=== PATIENT | female | born 1980 | race Caucasian/White ===

== ENCOUNTER 2022-08-11 16:12 | Emergency (ER) | payer BC ==
[~2022-08-11] VITALS: Ht 157.5 cm; Wt 74.8 kg
[2022-08-11] MEDS ORDERED: DiphenhydrAMINE HCL 50 MG/ML VIAL IV ONE (16:30)
[2022-08-11] MEDS ORDERED: PROCHLORPERAZINE 10MG/2ML INJ IV ONE (16:30)
[2022-08-11] MEDS ORDERED: KETOROLAC 30MG VIAL (30MG/ML) IVP ONE (16:30)
[2022-08-11 16:42] LABS: BASOPHILS % (AUTO) 0.2 % (0.0-5.0); LYMPHOCYTES % (AUTO) 8.1 % (21.0-51.0); MEAN CORPUSCULAR HEMOGLOBIN 30.2 pg (27.0-33.0); MEAN CORPUSCULAR HGB CONC 34.6 g/dL (32.0-36.0); MEAN CORPUSCULAR VOLUME 87.2 fL (79-99); MONOCYTES % (AUTO) 2.7 % (3.0-13.0); NEUTROPHILS % (AUTO) 88.6 % (40.0-77.0); PLATELET COUNT (AUTO) 334 K/uL (130-400); RED CELL DISTRIBUTION WIDTH 13.2 % (11.0-15.5); WHITE BLOOD COUNT (AUTO) 12.5 K/uL (4.8-10.8)
[2022-08-11 16:51] LABS: CREATININE 0.8 mg/dL (0.5-1.5); POTASSIUM 3.3 mmol/L (3.5-5.1)
[2022-08-11 16:56] LABS: ALBUMIN 3.5 g/dL (3.5-5.0); TOTAL PROTEIN, SERUM 7.5 g/dL (6.0-8.3)
[2022-08-11 17:17] VITALS: BP 111/83
== END 2022-08-11 18:31 | disposition home or self-care (01) ==
LOC: EDH 16:12
DX: G43.909 Migraine, unspecified, not intractable, without status migrainosus (principal)
CPT/HCPCS: 99284; 96374; 70450; 96375; 80053; 84703; 85025; 36415; J1200; J0780; J1885